=== PATIENT | female | born 1940 | race Caucasian/White ===

== ENCOUNTER → 2020-05-15 | Outpatient (CLI) | payer MEDICARE ==
[~2020-05-15] MED LIST: ISOVUE-370 76% 100ML VIAL As Ordered ONE
--- NOTE | 2020-05-16 06:41 | REP ---
INDICATION: ABN CHEST XRAY, SOLITARY PULMONARY NODULE COMPARISON: None TECHNIQUE: Axial contrast enhanced images from the thoracic inlet to the upper abdomen with coronal and sagittal reformations using 75 ml Isovue 370 intravenous contrast material. This CT examination was performed using the following dose reduction techniques: Automated exposure control, adjustment of mA and/or kv according to the patient's size, and use of iterative reconstruction technique. FINDINGS: There is a 2.5 cm spiculated mass in the anterior right upper lobe (series 201; image 30). No significant associated mediastinal or right hilar adenopathy noted. No pleural effusion. Remainder lung farmer demonstrate chronic appearing age-related changes including mild bronchiectasis and scattered scarring. There is a mildly prominent area of somewhat nodular/linear scarring in the left lower lobe which is indeterminate but likely chronic. Tracheobronchial tree is patent. Mediastinum demonstrates relatively normal thoracic aorta, pulmonary vasculature, and heart/pericardium. No thoracic aortic aneurysm/dissection, cardiomegaly or pericardial effusion. IMPRESSION: 2.5 cm spiculated mass in the right upper lobe requires further investigation including consideration for PET-CT and or biopsy. <Electronically signed by Adarsh Pineda > 05/16/20 [id number]
== END ==
LOC: M RAD 13:34
PROVIDERS: ATTEND Physician Assistant
DX: R91.1 Solitary pulmonary nodule (principal)
CPT/HCPCS: 71260; Q9967

== ENCOUNTER 2020-11-26 22:44 | Inpatient (IN) | payer MEDICARE ==
[~2020-11-26] VITALS: Ht 157.5 cm; Wt 59.1 kg
[2020-11-27 00:37] LABS: BASO % 0.1 % (0.0-1.0); HEMATOCRIT 44.4 % (36.0-47.0); HEMOGLOBIN 14.5 g/dl (12.0-15.5); LYMPH # 0.6 10^3/uL (1.5-5.0); LYMPH % 8.4 % (24.0-44.0); MEAN CORPUSCULAR HEMOGLOBIN 31.1 pg (27.0-33.0); MEAN CORPUSCULAR HGB CONC 32.7 g/dl (32.0-36.5); MEAN CORPUSCULAR VOLUME 95.3 fl (80.0-96.0); MONO # 0.5 10^3/uL (0.0-0.8); MONO % 6.6 % (2.0-8.0); NEUTROPHILS # 6.1 10^3/uL (1.5-8.5); NEUTROPHILS % 84.6 % (36.0-66.0); PLATELET COUNT, AUTOMATED 227 10^3/uL (150-450); RED BLOOD COUNT 4.66 10^6/uL (4.00-5.40); WHITE BLOOD COUNT 7.2 10^3/uL (4.0-10.0)
[2020-11-27 01:12] LABS: ALBUMIN 3.7 GM/DL (3.2-5.2); ALT/SGPT 20 U/L (12-78); BILIRUBIN,DIRECT 0.1 MG/DL (0.0-0.2); BILIRUBIN,TOTAL 0.7 MG/DL (0.2-1.0); CK-MB VALUE MASS 4.3 NG/ML (<3.6); CPK CREATINE PHOSPHOKINASE 322 U/L (26-192); LIPASE 48 U/L (73-393); MB/CK RELATIVE INDEX 1.34 (< OR =4); TOTAL PROTEIN 7.7 GM/DL (6.4-8.2); TROPONIN I < 0.02 NG/ML (< 0.10)
[2020-11-27 03:44] LABS: RSV AMPLIFICATION NEGATIVE (NEGATIVE)
--- NOTE | 2020-11-27 03:58 | REPVR ---
PROCEDURE INFORMATION: Exam: CT Head Without Contrast Exam date and time: 11/27/2020 2:48 AM Age: 80 years old Clinical indication: Altered mental status/memory loss; Confusion or disorientation TECHNIQUE: Imaging protocol: Computed tomography of the head without contrast. Radiation optimization: All CT scans at this facility use at least one of these dose optimization techniques: automated exposure control; mA and/or kV adjustment per patient size (includes targeted exams where dose is matched to clinical indication); or iterative reconstruction. COMPARISON: No relevant prior studies available. FINDINGS: Brain: There is no CT evidence for an acute large vessel territorial infarct. No acute intracranial hemorrhage is seen. No mass, mass effect, midline shift, or herniation is noted. There are mild non-specific foci of low attenuation in the periventricular white matter, which are likely the sequela of chronic small vessel ischemic injury. Cerebral ventricles: The ventricles are mildly dilated in proportion to the sulci, which is compatible with mild generalized cerebral volume loss. Paranasal sinuses: The imaged portions of the sinuses are well aerated. No air-fluid levels are noted in the sinuses. Mastoid air cells: The mastoid air cells are well aerated. Orbital cavity: The globes and orbits are intact. Incidental note is made of bilateral calcific senile scleral plaques. Bones/joints: The skull is intact. Incidental note is made of arachnoid granulations in the left occipital bone. Soft tissues: Unremarkable. No soft tissue fluid collection. IMPRESSION: No acute intracranial abnormality. Electronically signed by: Jeffrey Newman On 11/27/2020 03:57:52 AM
--- NOTE | 2020-11-27 04:04 | REPVR ---
PROCEDURE INFORMATION: Exam: XR Chest Exam date and time: 11/27/2020 3:26 AM Age: 80 years old Clinical indication: Altered mental status TECHNIQUE: Imaging protocol: XR of the chest. Views: 1 view. COMPARISON: 1. CT Chest with contrast 05/15/2020 1:47 PM 2. CR CHEST, 1 VIEW - OUTSIDE PRIOR 02/23/2020 9:03:15 PM (The reports from these studies were not available for review at the time of this interpretation.) FINDINGS: Lungs: There is a right upper lobe opacity that corresponds to a spiculated mass that can be seen in the CT chest on 05/15/2020. There is a clip within the mass that has been placed since the CT chest on 05/15/2020. There is a linear density in the left lung base, which may represent scarring or atelectasis. Pleural spaces: Unremarkable. No pleural effusion. No pneumothorax. Heart/Mediastinum: Unremarkable. No cardiomegaly. Bones/joints: There are endplate spurs in the thoracic spine. IMPRESSION: Right upper lobe opacity that corresponds to a spiculated mass that can be seen in the CT chest on 05/15/2020. Correlation with pathology results is suggested. Electronically signed by: Jeffrey Newman On 11/27/2020 04:03:55 AM
--- NOTE | 2020-11-27 05:15 | ECGEPIP ---
[facility] - ED Test Date: 2020-11-27 Pat Name: MYLES OSBORNE Department: Room: - Gender: Female Project Management Director: DEAN : 1940 Requested By: FRANCO Ott Order Number: [id number] Reading MD: Robert Gomez Measurements Intervals [place] Rate: 82 P: 59 IA: 202 QRS: 12 QRSD: 86 T: 50 QT: 404 QTc: 472 Interpretive Statements Normal sinus rhythm Nonspecific T wave abnormality Baseline artifact Comparison tracing not on file Electronically Signed on 11-27-2020 5:15:44 EDT by Robert Gomez
[2020-11-27 05:43] LABS: ETHYL ALCOHOL (ETHANOL) < 0.003 % (0.000-0.010)
[2020-11-27 05:54] LABS: AMPHETAMINES LEVEL URINE NEGATIVE (NEGATIVE); BARBITURATES URINE NEGATIVE (NEGATIVE); BENZODIAZEPINES URINE NEGATIVE (NEGATIVE); CANNABINOIDS URINE NEGATIVE (NEGATIVE); COCAINE METABOLITE URINE NEGATIVE (NEGATIVE); METHADONE URINE NEGATIVE (NEGATIVE); OPIATES URINE NEGATIVE (NEGATIVE); PHENCYCLIDINE URINE NEGATIVE (NEGATIVE)
[2020-11-27] MEDS ORDERED: NS 1,000 ML IV SCH (05:55)
--- NOTE | 2020-11-27 05:56 | HPEPDOC ---
[facility] Medical History & Physical Date of Admission Nov 27, 2020 Date of Service: Nov 27, 2020 History and Physical CHIEF COMPLAINT: Altered mental status HISTORY OF PRESENT ILLNESS: 80-year-old female history of hypertension witnessed by her son and daughter to be more confused and weak at home 911 was called. Patient arrived at the emergency department workup was essentially negative other than a possible UTI urine cultures pending. I saw the patient bedside she is intermittently confused initially she thought she was in the ambulance later corrected herself that she was at the hospital she also thought it was November although she is fairly close at November 27 she otherwise answered questions appropriately she can identify the year, the president, her date of , the names of her children. She was able to give me essentially a fairly complete history and then a few mistakes she didn't appear confused to me more so weak. She tells me she gets frequent UTIs although she denies dysuria at this time. Chest x-ray shows right upper lobe opacity corresponds to a spiculated mass that was seen on CT chest from April of this year. 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 PAST MEDICAL/SURGICAL HISTORY: Hypertension Appendectomy Cholecystectomy Tonsillectomy This list may be incomplete given patient's confusion she denies any medical problems but others may exist awaiting medications to be reconciled by pharmacy SOCIAL HISTORY: Denies alcohol use Denies tobacco use Denies illicit drug use FAMILY HISTORY: Reviewed and none contributory to this admission ALLERGIES: Please see below. REVIEW OF SYSTEMS: 10 point review of systems complete all negative otherwise stated in HPI HOME MEDICATIONS: Please see below. PHYSICAL EXAMINATION: Constitutional: Awake and alert, in no apparent distress, appears weak and tired ENT: Sclera are clear. Mucosa is moist. Respiratory: Lungs CTA bilaterally. No respiratory distress. No use of accessory muscles. Cardiovascular: RRR S1 and S2 are normal, no murmur Gastrointestinal: Abdomen is soft, non distended, non tender, BS present. Musculoskeletal: No lower extremity edema. Neurologic: No focal neurological deficit. Mental Status: A&O x2, normal affect. She is intermittently confused initially she thought she was in the ambulance later corrected herself that she was at the hospital she also thought it was November although she is fairly close at Septe mber 28 she otherwise answered questions appropriately she can identify the year, the president, her date of , the names of her children. Skin: No visible rashes LABORATORY DATA: See below. IMAGING: See chart MICROBIOLOGY: Please see below. ASSESSMENT/PLAN 80-year-old female history of hypertension presents with increasing confusion and weakness found to have a UTI likely contributing to her state admitted for further medical management. # Increased confusion and weakness: Slight confused during exam, more so appearing weak. At this point it's reasonable to assume her symptoms are likely due to her underlying UTI which will be treated with IV ceftriaxone pending urine cultures. # Suspected UTI: Follow up urine cultures. IV ceftriaxone. IVFs. # Hypertension: Waiting for home meds to be reconsulted by pharmacy at which point morning team can resume as appropriate and titrate as needed. # BMP not done by the ED: I'll ask the morning team to please follow up on BMP results, I am concerned about possible NORRIS if she is dehydrated due to this UTI and may need IVFs. I will give 1L Ns in the meantime. # Lung cancer: spiculated mass seen on CXR. Patient tells me she follows up at [facility] with an oncologist there and last received radiation on Oct 31. I asked her to continue to follow up with her oncologist after discharge. # DVT prophylaxis: Heparin A Yousef Hospitalist Vital Signs Vital Signs Date Time Temp Pulse Resp B/P (MAP) Pulse Ox O2 Delivery O2 Flow Rate FiO2 11/27/20 05:30 86 18 142/70 (94) 100 11/27/20 03:07 97.3 11/27/20 00:29 Room Air Laboratory Data Labs 24H Laboratory Tests 2 11/27/20 00:11: Immature Granulocyte % (Auto) 0.3, Neutrophils (%) (Auto) 84.6H, Lymphocytes (%) (Auto) 8.4L, Monocytes (%) (Auto) 6.6, Eosinophils (%) (Auto) 0.0, Basophils (%) (Auto) 0.1, Neutrophils # (Auto) 6.1, Lymphocytes # (Auto) 0.6L, Monocytes # (Auto) 0.5, Eosinophils # (Auto) 0.0, Basophils # (Auto) 0.0, Nucleated Red Blood Cells % (auto) 0.0, Urine Color YELLOW, Urine Appearance CLEAR, Urine pH 6.0, Urine Specific [place] 1.009, Urine Protein NEGATIVE, Urine Glucose (UA) NEGATIVE, Urine Ketones TRACEH, Urine Blood 1+H, Urine Nitrite NEGATIVE, Urine Bilirubin NEGATIVE, Urine Urobilinogen 0.2, Urine Leukocyte Esterase 1+H, Urine WBC (Auto) 17H, Urine RBC (Auto) 2, Urine Hyaline Casts (Auto) 8, Urine Bacteria (Auto) NEGATIVE, Urine Squamous Epithelial Cells 1, Urine Transitional Epithelial Cells <1, Urine Mucus (Auto) SMALL, Urine Sperm (Auto) , Total Bilirubin 0.7, Direct Bilirubin 0.1, Aspartate Amino Transf (AST/SGOT) 34, Alanine Aminotransferase (ALT/SGPT) 20, Alkaline Phosphatase 90, Total Creatine Kinase 322H, Creatine Kinase MB 4.3H, Creatine Kinase MB Relative Index 1.34, Troponin I < 0.02, Total Protein 7.7, Albumin 3.7, Albumin/Globulin Ratio 0.9L, Lipase 48L, Ethyl Alcohol Level < 0.003 11/27/20 03:00: Coronavirus (COVID-19)(PCR) NEGATIVE, Influenza Type A (RT-PCR) NEGATIVE, Influenza Type B (RT-PCR) NEGATIVE, Respiratory Syncytial Virus (PCR) NEGATIVE 11/27/20 03:05: Bedside Glucose (Misc Panel) 111H 11/27/20 03:15: Bedside Glucose (Misc Panel) 114H 11/27/20 05:00: CBC/BMP Laboratory Tests 11/27/20 00:11 Microbiology Microbiology 11/27/20 Urine Culture, Received Pending Allergies Coded Allergies: ether (Verified Allergy, Unknown, 11/26/20) A-FIB/CHADSVASC A-FIB History Current/History of A-Fib/PAF?: No KITTY HOUSTON MD Nov 27, 2020 05:56
[2020-11-27] MEDS ORDERED: LOSA25TA14 PO (06:05)
[2020-11-27] MEDS ORDERED: VITMTA PO (06:05)
[2020-11-27] MEDS ORDERED: TRAZ1TAB11 PO (06:05)
[2020-11-27] MEDS ORDERED: HOME MED LIST COMPLETE! XX SCH (06:05)
[2020-11-27] MEDS ORDERED: D31000TA2 PO (06:05)
[2020-11-27] MEDS ORDERED: cefTRIAXone SOD 1 GM in D5W MINI-BAG PLUS 50 ML IV SCH (07:00)
[2020-11-27 07:21] LABS: BLOOD UREA NITROGEN 16 MG/DL (7-18); CALCIUM LEVEL 8.8 MG/DL (8.8-10.2); CARBON DIOXIDE LEVEL 28 MEQ/L (21-32); CHLORIDE LEVEL 109 MEQ/L (98-107); CREATININE FOR GFR 0.88 MG/DL (0.55-1.30); GLOMERULAR FILTRATION RATE > 60.0 (>32); GLUCOSE, FASTING 118 MG/DL (70-100); POTASSIUM SERUM 3.6 MEQ/L (3.5-5.1); SODIUM LEVEL 143 MEQ/L (136-145)
[2020-11-27 08:49] VITALS: BP 151/78
[2020-11-27] MEDS: DOCUSATE SODIUM 100MG CAPSULE PO SCH ×2 (10:20→19:55)
[2020-11-27] MEDS: HEPARIN SOD (PORCINE) 5000UNITS/ML 1ML VIAL/SYRINGE SC SCH ×2 (10:20→19:55)
[2020-11-27 14:17] VITALS: BP 137/84
[2020-11-27 22:00] VITALS: BP 122/70
--- NOTE | 2020-11-27 22:09 | IPNPDOC ---
Date Seen The patient was seen on 11/27/20. Progress Note SUBJECTIVE: This is an 80 year old female with history of hypertension and lung cancer (type unknown to patient) who presented to the [facility] ER early this morning (11/27/20) after her son and daughter found her to be in an altered mentation in her home. Patient was able to assist in history collection although she had intermittent confusion. Patient was able to identify year, president, and names of her children. When she was asked where she currently was, the patient initially answered that she was in an ambulance but corrected herself that she was in the hospital. She also reported that the month was November, which is very close to the current date (11/27/20). Admitting hospitalist reports that she appears more weak than confused. CXR in ER showed right upper lobe opacity c/w CT chest from April 2020. Patient follows with heme/onc in [place] and had her last session early October. She also reports a follow up scan in January of this year. Per admitting physician, ER workup was essentially negative, but urine cultures are pending. On exam today on the floor, her mental status seems to have improved. She is more lucid and is able to give a more complete history. She is oriented to place, year, name, and is able to name the president. She still stated that the month was November and was unable to give the date/day of the week but again, it is 11/27 so she is not a concerning amount off in her answer. She reports that she lives alone and is otherwise independent. She still drives and does not use any walking assistance (walker/cane). Her children live nearby and they check in on her about 2-3x/week She reports that she had an event similar to this last January (2019) when she was unresponsive and has no memory of the event. She was found to have a UTI at this time. She states that during this current episode (11/27/20) she did not lose consciousness at any point and is aware of the timeline of events. She endorses infrequent anomic aphasia which she says are most commonly with names and dates. She denies fever, chills, change in urination, hematuria, N/V/D/C, abd pain, CP, easy bruising or bleeding, appetite change, change in BMs. OBJECTIVE PHYSICAL EXAMINATION: VITAL SIGNS: Please see below. Constitutional: Awake and alert, NAD ENT: Sclera grossly normal, MMM Respiratory: No obvious accessory muscle use, some crackles in the left lower lung base, otherwise CTA bilaterally Cardiovascular: RRR, S1, S2, no obvious murmur Gastrointestinal: Abdomen soft, non-tender, non-distended, BS present and norm oactive Extremities: Small lump on lateral/plantar of right foot, patient reports it is only painful with walking. No lower extremity edema. Mental Status: Oriented to place, year, self, president. Responded that the month was November (today is 11/27, not grossly off), and was unable to give the day of the week. Appropriate mood and affect. LABORATORY DATA, IMAGING STUDIES, MICROBIOLOGY: Please see below. IMAGING: CXR 1 view 11/27/20 Impression: Right upper lobe opacity that corresponds to a spiculated mass that can be seen in the CT chest on 05/15/2020. Correlation with pathology results is suggested. CT Head w/o Contrast - 11/27/20 Impression: No acute intracranial abnormality. ASSESSMENT AND PLAN: This is an 80 year old woman with a history of HTN and lung cancer (type unknown to patient), who presents with altered mentation and weakness. Patient was admitted to the hospitalist service to monitor and evaluate for possible etiolog y of the event. # Increased confusion and weakness - Confusion improved from ER presentation - Confusion was thought to be 2/2 potential underlying UTI 2/2 history of UTI with confusion w/ LOC in January 2020 - UA shows urine bacteria to be negative, no obvious focal infection appreciated on PE, Urine culture pending, Ceftriaxone was stopped until further evidence of infection or more specific etiology is identified # Suspected UTI - UA resulted, Urine culture pending - Ceftriaxone IV stopped 2/2 non specific UA - IVF fluids stopped 2/2 patient able to self-hydrate # Hypertension - Continue home medications once approved by pharmacy # BMP follow up 2/2 concern for NORRIS - BUN 16, Cr 0.88 # Lung Cancer - Spiculated mass seen on CXR in ER - Known lung cancer, followed by Oncology in [place] - Per patient, radiation finished and has a follow up scan in January of this y ear (2020) # DVT Prophylaxis - Heparin Contribution by Zachary HUTSONI GME ATTESTATION My faculty preceptor for this patient encounter was physically present during the encounter and was fully available. All aspects of the patient interview, examination, medical decision making process, and medical care plan development were reviewed and approved by the faculty preceptor. The faculty preceptor is aware and concurs with the plan as stated in the body of this note and will attest to such by his/her cosignature. ATTENDING NOTE I personally examined Ms. Ramirez and I agree with the above noted findings and plan as thoroughly noted by the resident physician. We discussed her presentation, findings and came up with her treatment plan together and at this time, given the transient nature of her encephalopathy and negative urine culture, we will stop all antibiotics without convincing evidence of ongoing infection. VS, I&O, 24H, Fishbone Vital Signs/I&O Vital Signs Date Time Temp Pulse Resp B/P (MAP) Pulse Ox O2 Delivery O2 Flow Rate FiO2 11/27/20 14:17 97.8 87 18 137/84 (101) 96 Room Air Laboratory Data 24H LABS Laboratory Tests 2 11/27/20 00:11: Immature Granulocyte % (Auto) 0.3, Neutrophils (%) (Auto) 84.6H, Lymphocytes (%) (Auto) 8.4L, Monocytes (%) (Auto) 6.6, Eosinophils (%) (Auto) 0.0, Basophils (%) (Auto) 0.1, Neutrophils # (Auto) 6.1, Lymphocytes # (Auto) 0.6L, Monocytes # (Auto) 0.5, Eosinophils # (Auto) 0.0, Basophils # (Auto) 0.0, Nucleated Red Blood Cells % (auto) 0.0, Urine Color YELLOW, Urine Appearance CLEAR, Urine pH 6.0, Urine Specific [place] 1.009, Urine Protein NEGATIVE, Urine Glucose (UA) NEGATIVE, Urine Ketones TRACEH, Urine Blood 1+H, Urine Nitrite NEGATIVE, Urine Bilirubin NEGATIVE, Urine Urobilinogen 0.2, Urine Leukocyte Esterase 1+H, Urine WBC (Auto) 17H, Urine RBC (Auto) 2, Urine Hyaline Casts (Auto) 8, Urine Bacteria (Auto) NEGATIVE, Urine Squamous Epithelial Cells 1, Urine Transitional Epithelial Cells <1, Urine Mucus (Auto) SMALL, Urine Sperm (Auto) , Total Bilirubin 0.7, Direct Bilirubin 0.1, Aspartate Amino Transf (AST/SGOT) 34, Alanine Aminotransferase (ALT/SGPT) 20, Alkaline Phosphatase 90, Total Creatine Kinase 322H, Creatine Kinase MB 4.3H, Creatine Kinase MB Relative Index 1.34, Troponin I < 0.02, Total Protein 7.7, Albumin 3.7, Albumin/Globulin Ratio 0.9L, Lipase 48L, Ethyl Alcohol Level < 0.003 11/27/20 00:25: POC Glucose (Misc Panel) 129H, POC Sodium (Misc Panel) 141, POC Potassium (Misc Panel) 3.5, POC Chloride (Misc Panel) 103, POC Total CO2 (Misc Panel) 25.0, POC Blood Urea Nitrogen (Misc Panel 17, POC Ionized Calcium (Misc Panel) 4.8, POC Creatinine (Misc Panel) 0.8, POC Hematocrit (Misc Panel) 47.0 11/27/20 03:00: Coronavirus (COVID-19)(PCR) NEGATIVE, Influenza Type A (RT-PCR) NEGATIVE, Influenza Type B (RT-PCR) NEGATIVE, Respiratory Syncytial Virus (PCR) NEGATIVE 11/27/20 03:05: Bedside Glucose (Misc Panel) 111H 11/27/20 03:15: Bedside Glucose (Misc Panel) 114H 11/27/20 05:00: Urine Opiates Screen NEGATIVE, Urine Methadone Screen NEGATIVE, Urine Barbiturates Screen NEGATIVE, Urine Phencyclidine Screen NEGATIVE, Urine Amphetamines Screen NEGATIVE, Urine Benzodiazepines Screen NEGATIVE, Urine Cocaine Metabolite Screen NEGATIVE, Urine Cannabinoids Screen NEGATIVE 11/27/20 05:05: POC pH (Misc Panel) 7.452H, POC Base Excess (Misc Panel) 3.0, POC Saturated Percent O2 (Misc) 97, POC pO2 (Misc Panel) 83.0, POC pCO2 (Misc Panel) 38.5, POC HCO3 (Misc Panel) 26.9H, POC Total CO2 (Misc Panel) 28.0H 11/27/20 06:30: Anion Gap 6L, Glomerular Filtration Rate > 60.0, Calcium Level 8.8 CBC/BMP Laboratory Tests 11/27/20 00:11 11/27/20 06:30 Microbiology Microbiology 11/27/20 Urine Culture, Received Pending MAURIZIO MARKS D.O. Nov 27, 2020 22:09 MENDEL COOPER MD Nov 28, 2020 08:04
[2020-11-28 06:00] VITALS: BP 150/70
[2020-11-28] MEDS ORDERED: FLUBLOK(EGG FREE)(QUAD)INFLUENZA VACC 0.5ML SYRINGE 18YRS & OLDER IM ONE (09:00)
[2020-11-28] MEDS: HEPARIN SOD (PORCINE) 5000UNITS/ML 1ML VIAL/SYRINGE SC SCH (09:58)
[2020-11-28] MEDS: DOCUSATE SODIUM 100MG CAPSULE PO SCH (09:58)
[2020-11-28 10:04] LABS: HEMATOCRIT 40.7 % (36.0-47.0); HEMOGLOBIN 13.1 g/dl (12.0-15.5); MEAN CORPUSCULAR HEMOGLOBIN 31.3 pg (27.0-33.0); MEAN CORPUSCULAR HGB CONC 32.2 g/dl (32.0-36.5); MEAN CORPUSCULAR VOLUME 97.4 fl (80.0-96.0); PLATELET COUNT, AUTOMATED 185 10^3/uL (150-450); RED BLOOD COUNT 4.18 10^6/uL (4.00-5.40); WHITE BLOOD COUNT 4.2 10^3/uL (4.0-10.0)
[2020-11-28 10:24] LABS: ALBUMIN 3.3 GM/DL (3.2-5.2); ALT/SGPT 21 U/L (12-78); BILIRUBIN,TOTAL 0.7 MG/DL (0.2-1.0); BLOOD UREA NITROGEN 18 MG/DL (7-18); CARBON DIOXIDE LEVEL 28 MEQ/L (21-32); CHLORIDE LEVEL 106 MEQ/L (98-107); CREATININE FOR GFR 0.82 MG/DL (0.55-1.30); GLOMERULAR FILTRATION RATE > 60.0 (>32); GLUCOSE, FASTING 94 MG/DL (70-100); POTASSIUM SERUM 3.9 MEQ/L (3.5-5.1); SODIUM LEVEL 144 MEQ/L (136-145); TOTAL PROTEIN 7.1 GM/DL (6.4-8.2)
[2020-11-28 14:00] VITALS: BP 142/78
--- NOTE | 2020-11-28 16:00 | DS.PDOC ---
Discharge Summary General Date of Admission Nov 27, 2020 at 06:09 Date of Discharge Saturday, November 28, 2020 Attending Physician: MENDEL COOPER MD Discharge Summary PROCEDURES PERFORMED DURING STAY: None ADMITTING DIAGNOSES: -Altered mental status -Hypertension -History of right lung cancer status post radiation treatments DISCHARGE DIAGNOSES: -Altered mental status, improved -Hypertension -History of right lung cancer status post radiation treatments COMPLICATIONS/CHIEF COMPLAINT: Alterer Mental Stat/ Uti. HISTORY OF PRESENT ILLNESS: Keya is a pleasant 80 year old female with history of hypertension and lung cancer (type unknown to patient) who presented to the [facility] ER early this morning (11/27/20) after her son and daughter found her to be in an altered mentation in her home. Patient was able to assist in history collection although she had intermittent confusion. Patient was able to identify year, president, and names of her children. When she was asked where she currently was, the patient initially answered that she was in an ambulance but corrected herself that she was in the hospital. She also reported that the month was November, which is very close to the current date (11/27/20). Admitting hospitalist reports that she appears more weak than confused. CXR in ER showed right upper lobe opacity c/w CT chest from April 2020. Patient follows with heme/onc in [place] and had her last session early October. She also reports a follow up scan in January of this year. Per admitting physician, ER workup was essentially negative, but urine cultures are pending. HOSPITAL COURSE: During daytime hospitalist service exam on 11/27, patient's mental status seemed to be improved from what was documented at admission. She was more lucid and was able to give a more complete history. She was oriented to place, year, name, and was able to name the president. She still stated the month was November and was unable to give the date/day of the week. She reported infrequent anomic aphasia which she says are most commonly with names and dates. She denied any fever, chills, change in urination, hematuria, N/V/D/C, abd pain, CP, easy bruising or bleeding, appetite change, change in BMs. At no point did the patient ever have leukocytosis. Chest x-ray in ED as noted above showed known right lung opacity consistent with her cancer and a CT of the head was without any acute intracranial abnormalities. Urinalysis was unremarkable for infection. Patient was subsequently taken off of Ceftriaxone IV 2/2 no lab or clinical warranting clinical indication. Patient was also taken off of IV fluids and encouraged to optimize her p.o. intake. On day of discharge, 11/28/2020, patient was alert and oriented to person place and time as well as situation. She also was able to give the correct month and answered all questions and commands appropriately. She also felt her weakness had improved and denied any change while inpatient to her baseline intermittent anatomic aphasia. She not had a bowel movement which was described to decreased poor p.o. intake prior to presentation. Patient denies any fever, night sweats, or chills and due to no significant signs of infection both clinically or on laboratories, she was discharged home to follow-up with her primary care physician within the next 3 to 5 days. DISCHARGE MEDICATIONS: Please see below. ALLERGIES: Please see below. PHYSICAL EXAMINATION ON DISCHARGE: VITAL SIGNS: Please see below. GENERAL: This is a pleasant elderly female who is awake and alert, in no acute distress HEENT: NC/AT, PERRLA, EOMI grossly (some trouble with convergence), sclera grossly normal, mouth mildly dry but still pink with no obvious lesions, upper dentures in place and appear well fitting NECK: No obvious lymphadenopathy CARDIOVASCULAR EXAMINATION: RRR, S1, S2, no obvious murmur, radial pulses 2+ RESPIRATORY EXAMINATION: No obvious accessory muscle use, some crackles again appreciated in the left lower lobe of the lung, otherwise CTA bilaterally ABDOMINAL EXAMINATION: Soft, non-tender to palpation, non-distended, BS present and normo- to hyperactive EXTREMITIES: Small lump on lateral/plantar aspect of patients right foot again appreciated (patient reports no recent changes to size, color or tenderness), no lower extremity edema, CAR PARKER and DPA pulses present MENTAL STATUS: Oriented to place, year, self, president, month and day (patient previously was slightly off on month and day, today she gives the correct answer when prompted), appropriate mood and affect. LABORATORY DATA: Please see below. IMAGING: CXR 1 view 11/27/20 Impression: Right upper lobe opacity that corresponds to a spiculated mass that can be seen in the CT chest on 05/15/2020. Correlation with pathology results is suggested. CT Head w/o Contrast - 11/27/20 Impression: No acute intracranial abnormality. PROGNOSIS: Fair ACTIVITY: As tolerated DIET: 2 g sodium. DISPOSITION: Discharge home DISCHARGE INSTRUCTIONS & ITEMS TO FOLLOWUP ON ON OUTPATIENT: -Patient is to follow-up with her primary care physician in the next 3 to 5 days. -Patient is to follow-up with her medical oncologist in [place] as previously scheduled. -Patient is to resume her home medications as prescribed. -Should patient experience return of presenting symptoms, and/or acute worsening, please report to the emergency department. -Please comply with the above treatment plan. -Thank you for the opportunity to participate in your care. DISCHARGE CONDITION: Stable TIME SPENT ON DISCHARGE: 37 minutes Vital Signs/I&Os Vital Signs Date Time Temp Pulse Resp B/P (MAP) Pulse Ox O2 Delivery O2 Flow Rate FiO2 11/28/20 14:00 98.4 77 19 142/78 (99) 95 Room Air l I&O- Last 24 Hours up to 6 AM 11/28/20 06:00 Intake Total 0 ml Balance 0 ml Laboratory Data Labs 24H Laboratory Tests 2 11/28/20 09:26: Nucleated Red Blood Cells % (auto) 0.0, Anion Gap 10, Glomerular Filtration Rate > 60.0, Calcium Level 9.0, Total Bilirubin 0.7, Aspartate Amino Transf (AST/SGOT) 26, Alanine Aminotransferase (ALT/SGPT) 21, Alkaline Phosphatase 79, Total Protein 7.1, Albumin 3.3, Albumin/Globulin Ratio 0.9L 11/28/20 13:01: Lab Scanned Report Miscellaneous Lab CBC/BMP Laboratory Tests 11/28/20 09:26 Microbiology Microbiology 11/27/20 Urine Culture - Final, Complete Discharge Medications Scheduled Cholecalciferol (Vitamin D3) (Vitamin D3) 1,000 Unit Tablet, 1,000 UNITS PO DAILY, (Reported) Losartan Potassium (Losartan Potassium) 25 Mg Tablet, 25 MG PO QHS, (Reported) Multivitamins (Thera M Plus Tablet) 1 Each Tablet, 1 TAB PO DAILY, (Reported) Trazodone HCl (Trazodone HCl) 50 Mg Tablet, 25 MG PO QHS, (Reported) Allergies Coded Allergies: ether (Verified Allergy, Unknown, 11/26/20) GME ATTESTATION My faculty preceptor for this patient encounter was physically present during the encounter and was fully available. All aspects of the patient interview, examination, medical decision making process, and medical care plan development were reviewed and approved by the faculty preceptor. The faculty preceptor is aware and concurs with the plan as stated in the body of this note and will atte st to such by his/her cosignature. ATTENDING NOTE I personally examined Ms. Ramirez together with the medical students and we discussed her physical exam findings, studies, clinical progression and discharge plan, and I agree with the above noted findings and summary. Ms. Bui er had a transient encephalopathy that prompted her admission and lasted a few hours. By the time we met her the next morning, she had resolved and her exam was non-focal. CT head was negative, infectious workup was negative, and neurological examination was wnl and telemetry negative. We communicated with her that we are not quite sure what precipitated her transient confusion and encephalopathy and therefore recommended close PCP follow up. MAURIZIO MARKS D.O. Nov 28, 2020 16:00 MENDEL COOPER MD Nov 28, 2020 17:37
== END 2020-11-28 18:20 | disposition home or self-care (01) | DRG 948 ==
LOC: M ED 22:44 → M ED INP 11-27 06:09 → ENRESERV 11-27 06:45 → M MSPAV 11-27 07:59
PROVIDERS: ADMIT Family Medicine; ATTEND Internal Medicine
DX: R41.82 Altered mental status, unspecified (principal); C34.90 Malignant neoplasm of unspecified part of unspecified bronchus or lung; I10 Essential (primary) hypertension; Z92.23 Personal history of estrogen therapy